=== PATIENT | male | born 1955 | race Caucasian/White ===

== ENCOUNTER 2023-02-18 08:12 | Outpatient (OUT) | payer MEDICARE, OTHER, SELFPAY ==
[2023-02-18 08:37] LABS: Basophils Percent Auto 0.6 % (0.2-2.0); Eosinophils Absolute Auto 0.3 10^3/uL (0.0-0.7); Eosinophils Percent Auto 4.2 % (0.9-7.0); Hematocrit 39.1 % (42.0-54.0); Immature Granulocytes Abs Auto 0.01 10^3/uL (0.00-0.03); Immature Granulocytes Pct Auto 0.2 % (0.0-0.5); Lymphocytes Absolute Auto 1.5 10^3/uL (1.2-3.8); Mean Corpuscular HGB Conc 33.2 g/dL (29.9-35.2); Mean Corpuscular Hemoglobin 30.4 pg (25.9-34.0); Mean Corpuscular Volume 91.6 fL (80.0-94.0); Mean Platelet Volume 10.8 fL (9.5-13.5); Monocytes Absolute Auto 0.7 10^3/uL (0.3-0.8); Neutrophils Absolute Auto 3.8 10^3/uL (1.4-6.5); Platelet Count 212 10^3/uL (150-450); Red Blood Count 4.27 10^6/uL (4.70-6.10); Red Cell Distribution Width 12.5 % (11.0-15.0); White Blood Count 6.3 10^3/uL (4.0-11.0)
[2023-02-18 09:05] LABS: Alanine Aminotransferase 47 U/L (16-63); Albumin Globulin Ratio 0.9; Albumin Level 3.5 g/dL (3.4-5.0); Alkaline Phosphatase 71 U/L (46-116); Anion Gap 13.5; Aspartate Amino Transferase 30 U/L (15-37); Bilirubin Total 0.6 mg/dL (0.2-1.0); Calcium 8.6 mg/dL (8.5-10.1); Carbon Dioxide 27.6 mmol/L (21.0-32.0); Chloride 108 mmol/L (98-107); Chol HDL Ratio 2.6; Cholesterol 99 mg/dL (<=200); Estimated GFR (African America >60 (>=60); Estimated GFR (Non-African Ame >60 (>=60); Globulin 3.7 g/dL; Glucose 103 mg/dL (74-106); HDL Cholesterol 38 mg/dL (40-60); Potassium 4.1 mmol/L (3.5-5.1); Sodium 145 mmol/L (136-145); Total Protein 7.2 g/dL (6.4-8.2); Triglycerides 102 mg/dL (<=150); VLDL CHOLESTEROL 20.4 mg/dL
== END 2023-02-18 08:13 | disposition home or self-care (01) ==
LOC: LAB 08:14
PROVIDERS: PCP Family Medicine; Visit Provider Nurse Practitioner Family
DX: I25.10 Atherosclerotic heart disease of native coronary artery without angina pectoris (principal)
CPT/HCPCS: 36415; 80053; 80061; 85025

== ENCOUNTER 2023-02-18 08:18 | Outpatient (OUT) | payer MEDICARE, OTHER, SELFPAY ==
--- NOTE | 2023-02-18 | PCN_ITS ---
CARDIAC STRESS TEST Requesting Physician:? Pj Vogt M.D. ? Procedure Date:? 02/18/2023 Performing Provider:? Wild Xiong M.D. INDICATION FOR STRESS TEST:? Chest pain. STRESS TEST TYPE:? Lexiscan myocardial perfusion scan. Resting heart rate:? 56 Max hear rate:? 90 Blood pressure, resting:? 132/60 Maximum blood pressure:? 132/60 Resting EKG:? Sinus rhythm with non-specific T-wave abnormality. CONCLUSION:? 1.? No definite EKG abnormalities meeting criteria for ischemia post Lexiscan injection. 2.? Please refer to separately interpreted and reported myocardial perfusion imaging. [facility] [facility]
--- NOTE | 2023-02-18 08:30 | NM_ITS ---
Patient: LIZBET JAIME Exam Date: 02/18/2023 : 1955 Gender:M Ordering : DR GARTH DOWNS M.D. Admission #: [id number] Family : ANGEL BUENO [facility] Order #: [id number] CLICK HERE TO VIEW EXAM RADIOLOGY REPORT PROCEDURE: NM CYRUS PERF SPECT REST STR COMPARISON: None. INDICATIONS: Chest pain TECHNIQUE: Exam Description: Stress/Rest two day protocol gated SPECT Rest Imagin.9 mCi Tc-99m Cardiolite IV on 02/18/2023 Stress Imaging 29.7 mCi Tc-99m Cardiolite IV on 02/18/2023 Exercise Protocol: 0.4 mg Lexiscan given IV Heart Rate (bpm): Rest: 56 Max: 90 PMHR: 59 Blood Pressure: Rest: 132/60 Max: 132/60 Symptoms: Rest and peak stress ECG findings were pending and the exercise portion of the study was pending per attending physician Dr. CONKLIN . For more details please see separate cardiac stress test report. FINDINGS: QUALITY OF STUDY: Good. PERFUSION DEFECT: None. LOCATION: N/A SIZE: N/A. SEVERITY: N/A. TYPE: N/A. WALL MOTION: Normal. LV SIZE: Normal. 87 mL. TID / TCD: None; 0.9 LVEF: Normal. Calculated EF 74%. SUMMARY: Myocardial perfusion imaging study is NORMAL. CONCLUSION: 1. Normal myocardial perfusion scan with no reversible ischemia 2. Exercise test results are pending Dictated by: Hernan Wheeler MD on 02/19/2023 at 12:59 Approved by: Hernan Wheeler MD on 02/19/2023 at 13:01
[2023-02-18] MEDS: REGADENOSON 0.4 MG/5 ML SYRINGE IV (10:21)
== END 2023-02-18 08:19 | disposition home or self-care (01) ==
LOC: NM 08:18
PROVIDERS: PCP Family Medicine; Visit Provider Internal Medicine Interventional Cardiology
DX: R07.9 Chest pain, unspecified (principal)
CPT/HCPCS: 78452; 93017; A9500; J2785

== ENCOUNTER 2023-06-16 11:50 | Outpatient (OUT) | payer MEDICARE, OTHER, SELFPAY ==
--- NOTE | 2023-06-16 12:03 | XR_ITS ---
The [address] [address] Patient Name: LIZBET JAIME MRN: [id number] date: 1955 Sex: M Assigned Patient Location: [facility] Current Patient Location: [facility] Accession/Order Number: [id number] Exam Date: 06/16/2023 12:07 Report Date: 06/16/2023 12:27 At the request of: NICKY MOTA Procedure: XR chest 2V EXAM: XR chest 2V HISTORY: Bronchitis J40 COMPARISON: None. TECHNIQUE: PA and lateral views of the chest. FINDINGS: The cardiomediastinal silhouette is normal. No focal consolidation is identified. There is no pneumothorax. No pleural effusion is noted. The osseous structures are intact. XR/XR chest 2V IMPRESSION: No acute cardiopulmonary process. Electronically authenticated by: CRISTY BETANCOURT Date: 06/16/2023 12:27
== END 2023-06-16 11:51 | disposition home or self-care (01) ==
LOC: RAD 11:53
PROVIDERS: PCP Family Medicine; Visit Provider Family Medicine
DX: J40 Bronchitis, not specified as acute or chronic (principal)
CPT/HCPCS: 71046

== ENCOUNTER 2023-07-15 10:00 | Outpatient (OUT) | payer MEDICARE, OTHER, SELFPAY ==
[2023-07-15 13:15] LABS: Hemoglobin 13.3 g/dL (14.0-18.0)
[2023-07-15] MEDS: ALBUTEROL SULFATE 2.5 MG/3 ML VIAL NEB IH (14:38)
--- NOTE | 2023-07-15 14:38 | RT_ITS ---
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 Findings were considered accurate and reproducible. Both pre- and post-bronchodilator values utilized for spirometry. Due to software limitations, no prior studies (if performed previously) are currently available for comparison. Spirometry (based on pre-bronchodilator values): -FEV1/FVC: Reduced @ 63% -FEV1: Moderately reduced @ 74% -FVC: Normal @ 86% -There is no significant bronchodilator response. Lung volumes by plethysmography (based on pre-bronchodilator values): -RV: Normal @ 86% -TLC: Normal @ 87% Diffusion capacity: -DLCO: Mild reduction @ 75% when corrected for Hb 13.3g/dL Flow-volume loop: -Moderate obstructive pattern Flow-pressure loop: ???Emphysematous pattern Impressions: -Spirometry suggests moderate obstruction. There is no bronchodilator response. Lung volumes are normal. There is a mildly reduced diffusion capacity. Overall study is compatible with COPD/emphysema. Clinical correlation required. Electronically Signed On 07-16-2023 12:24:02 EST by Ion Peña
== END 2023-07-15 10:01 | disposition home or self-care (01) ==
LOC: CARD 07-28 10:40
PROVIDERS: PCP Family Medicine; Visit Provider Family Medicine
DX: J44.9 Chronic obstructive pulmonary disease, unspecified (principal)
CPT/HCPCS: 36415; 85018; 94060; 94726; 94729

== ENCOUNTER 2024-09-29 14:27 | Outpatient (OUT) | payer MEDICARE, OTHER, SELFPAY ==
--- OUTSIDE RECORDS SUMMARY | 2024-09-29 14:51 | XMS_ITS | CCD ---
Author Organization [facility] Care Team Providers Care Script Developer Name Role Phone PHYSICIAN, DEFAULT Unavailable Unavailable PHYSICIAN, DEFAULT Unavailable Unavailable SELF, REFERRED Unavailable Unavailable Xiang Wynn Unavailable SVETLANA, DR NICKY Hunter Consulting Unavailable MOTA, DR NIKCY Hunter Attending Unavailable MOTA, DR NICKY Hunter Admitting Unavailable MOTA, DR NICKY Hunter Primary Care Unavailable ZIEBER, DR DAPHNE Wheeler Consulting Unavailable MOTA, DR NICKY Hunter Primary Care Unavailable XIMENAANGEL Admitting Unavailable XIMENAANGEL WAGNER Attending Unavailable ELTAHAWY, DR LIANG Consulting Unavailable MOTA, DR NICKY Hunter Primary Care Unavailable ELTAHAWY, DR LIANG Attending Unavailable ELTAHAWY, DR LIANG Admitting Unavailable MOTA, DR NICKY Hunter Primary Care Unavailable MOTA, DR NICKY Hunter Consulting Unavailable MOTA, DR NICKY Hunter Attending Unavailable MOTA, DR NICKY Hunter Admitting Unavailable ZIEBER, DR DAPHNE Wheeler Consulting Unavailable MOTA, DR NICKY Hunter Consulting Unavailable MOTA, DR NICKY Hunter Attending Unavailable MOTA, DR NICKY Hunter Admitting Unavailable MOTA, DR NICKY Hunter Primary Care Unavailable ISRAEL BOOTHE Consulting Unavailable ELTAHAWY, PJ Attending Unavailable MOTA, NICKY Hunter Referring Unavailable MOTANICKY Primary Care Unavailable Allergies Allergy Classification Reported Allergen(s) Allergy Type Date of Onset Reaction(s) Facility (1 source) Iodine Drug Allergy Unknown [place] Translation Other (1 source) Iodine Drug Allergy 6 [facility] Repository (2 sources) IODINATED CONTRAST MEDIA; Translations: [IODINATED CONTRAST MEDIA] Propensity to adverse reactions to drug (disorder) 4 [facility] Repository (1 source) Benzoate; Translations: [BENZOIC ACID] Drug Allergy 9 [facility] Repository (1 source) IODINE AND IODIDE CONTAINING PRODUCTS; Translations: [IODINE AND IODIDE CONTAINING PRODUCTS] Propensity to adverse reactions to food (disorder) 4 [facility] Repository Medications Current Medications Medication Drug Class(es) Dates Sig (Normalized) Sig (Original) aspirin 81 mg delayed release oral tablet (1 source) Platelet Aggregation Inhibitor, Nonsteroidal Anti-inflammatory Drug take 1 tablet by mouth every twenty-four hours Aspirin 81 MG 1 tablet Orally Once a day Active atorvastatin 40 mg oral tablet (1 source) HMG-CoA Reductase Inhibitor take 1 tablet by mouth every twenty-four hours Atorvastatin Calcium 40 MG 1 tablet Orally Once a day Active bumetanide 1 mg oral tablet (1 source) Loop Diuretic Bumetanide 1 MG as directed Orally Active clopidogrel 75 mg oral tablet (1 source) P2Y12 Platelet Inhibitor take 1 tablet by mouth every twenty-four hours Plavix 75 MG 1 tablet Orally Once a day Active potassium chloride 20 meq extended release oral tablet (1 source) take 1 tablet by mouth every twenty-four hours Potassium Chloride ER 20 MEQ 1 tablet with food Orally Once a day Active pramipexole dihydrochloride 0.25 mg oral tablet (1 source) Nonergot Dopamine Agonist take 1 tablet by mouth every twenty-four hours Pramipexole Dihydrochloride 0.25 MG 1 tablet Orally Once a day Active Vitamin B12 1000 MCG (1 source) take 1 tablet by mouth once daily Vitamin B12 1000 MCG 1 tablet Orally Once a day Active Problems Active Problems Problem Classification Problem Date Documented Date Episodic/Chronic Coronary atherosclerosis and other heart disease (2 sources) Atherosclerotic heart disease of [place] coronary artery without angina pectoris; Translations: [Atherosclerotic heart disease of [place] coronary artery without angina pectoris] Onset: 12-29-2023 Chronic Disorders of lipid metabolism (1 source) Hyperlipidemia, unspecified; Translations: [Hyperlipidemia, unspecified] Onset: 02-01-2024 Chronic Essential hypertension (1 source) Essential (primary) hypertension; Translations: [Essential (primary) hypertension] Onset: 02-01-2024 Chronic Other acquired deformities (4 sources) Spondylolysis, lumbar region; Translations: [SPONDYLOLYSIS LUMBAR REGION] Onset: 02-27-2022 Episodic Other screening for suspected conditions (not mental disorders or infectious disease) (1 source) Encounter for screening for malignant neoplasm of prostate; Translations: [Encounter for screening for malignant neoplasm of prostate] Onset: 02-01-2024 Episodic Residual codes; unclassified (4 sources) Other amnesia; Translations: [OTHER AMNESIA] Onset: 03-03-2022 Episodic Spondylosis; intervertebral disc disorders; other back problems (2 sources) Degeneration of cervical intervertebral disc; Translations: [Other cervical disc degeneration, unspecified cervical region] Onset: 03-06-2022 Chronic Past or Other Problems Problem Classification Problem Date Documented Da te Episodic/Chronic Other bone disease and musculoskeletal deformities (1 source) Other specified disorders of bone density and structure, other site; Translations: [OTH D/O BONE DEN STRUCT OTH SITE] Onset: 09-26-2021 Episodic Other fractures (4 sources) Collapsed vertebra, not elsewhere classified, thoracic region, initial encounter for fracture; Translations: [COLLAPSED VERT NEC THOR INIT ENC] Onset: 09-24-2021 Episodic Other fractures (1 source) Multiple fractures of ribs, right side, initial encounter for closed fracture; Translations: [MX FX RIBS RT SIDE INITIAL CLOS FX] Onset: 09-26-2021 Episodic Other lower respiratory disease (4 sources) Dyspnea, unspecified; Translations: [DYSPNEA UNSPECIFIED] Onset: 10-08-2021 Episodic Spondylosis; intervertebral disc disorders; other back problems (1 source) Cervical disc disorder at C5-C6 level with radiculopathy Onset: 07-11-2021 Resolved: 07-11-2021 Episodic Results Test Name Value Interpretation Reference Range Facility IRON, TIBC AND FERRITINon % SATURATION 30 % Normal (20 - 55) [facility] Comment on above: Order Comment: FACIL ITY: [facility] [id number] Performed By: #### T IBC+, B12+ #### [facility] [address] [facility], [id number] Ferritin [Mass/Vol] 119.0 ng/mL Normal (18.0 - 464.0) [facility] Comment on above: Order Comment: FACIL ITY: [facility] [id number] Performed By: #### T IBC+, B12+ #### [facility] [address] [place], [address] Iron [Mass/Vol] 92 ug/dL Normal (49 - 181) [facility] [facility] Comment on above: Order Comment: FACIL ITY: [place] [facility] [id number] Performed By: #### T IBC+, B12+ #### [place] [facility] [address] [place], [address] TIBC 308 UG/DL Normal (250 - 450) [place] [facility] Comment on above: Order Comment: FACIL ITY: [place] [facility] [id number] Performed By: #### T IBC+, B12+ #### [facility] [address] [place], [address] VIT B12 AND FOLATEon 025 Cobalamin (Vitamin B12) [Mass/Vol] 648 pg/mL Normal (239 - 931) [facility] above: Performed By: #### T IBC+, B12+ #### [facility] [address] [place], [address] FOLIC ACID 9.2 NG/ML Normal (2.8 - 20.0) [place] [facility] Comment on above: Performed By: #### T IBC+, B12+ #### [facility] [address] [place], [address] CBC AND AUTO DIFFon 02-01-20 24 ABSOLUTE BASOPHIL 0.0 X10E9/L Normal 0.0-0.2 [facility] Comment on above: Performed By: #### C MARCELLA, 29435-9, 2857-1, CBCA #### [facility] ([id number]) [address] [place] [address] ABSOLUTE NEUTROPHIL 4.2 X10E9/L Normal 1.5-6.6 [facility] Comment on above: Performed By: #### C MARCELLA, 70963-1, 2857-1, CBCA #### [facility] ([id number]) [address], [address] [place] [address] Basophils/100 WBC (Bld) 0.3 % Normal [facility] Comment on above: Performed By: #### C MARCELLA, 58260-5, 2857-1, CBCA #### [facility] ([id number]) [address], [facility] [address] [place] [address] Eosinophils (Bld) [#/Vol] 0.2 10*3/uL Normal 0.0-0.4 [facility] Comment on above: Performed By: #### C MARCELLA, 67133-4, 2857-1, CBCA #### [facility] ([id number]) [address] [address] [place] [address] Eosinophils/100 WBC (Bld) 3.7 % Normal [facility] Comment on above: Performed By: #### Miles NARANJO, 09183-6, 2856-, CBCA #### [facility] ([id number]) [address] [address] [place] [address] Erythrocyte distribution width (RBC) [Ratio] 13.0 % Normal 11.5-15.0 [facility] Comment on above: Performed By: #### C MARCELLA, 48020-8, 2857-1, CBCA #### [facility] ([id number]) [address] [address] [place] [address] Hematocrit (Bld) [Volume fraction] 40.8 % Normal 39-49 [facility] Comment on above: Performed By: #### C MARCELLA, 92566-8, 2857-1, CBCA #### [facility] ([id number]) [address] [address] [place] [address] Hemoglobin (Bld) [Mass/Vol] 14.1 g/dL Normal 13.0-17.0 [facility] Comment on above: Performed By: #### C MARCELLA, 25202-3, 2857-1, CBCA #### [facility] ([id number]) [address] [place] [address] Lymphocytes (Bld) [#/Vol] 1.5 10*3/uL Normal 1.0-3.5 [facility] Comment on above: Performed By: #### Miles NARANJO, 11974-2, 2856-, CBCA #### [facility] ([id number]) [address], [facility] [address] [place] [address] Lymphocytes/100 WBC (Bld) 23.6 % Normal [facility] Comment on above: Performed By: #### Miles NARANJO, 67487-7, 2856-, CBCA #### [facility] ([id number]) [address], [facility] [address] [place] [address] MCH (RBC) [Entitic mass] 32.2 pg Normal 27-34 [facility] Comment on above: Performed By: #### Miles NARANJO, 44357-6, 2856-08, CBCA #### [facility] ([id number]) [address], [facility] [address] [place] [address] MCHC (RBC) [Mass/Vol] 34.6 g/dL Normal 32-36 [facility] Comment on above: Performed By: #### Miles NARANJO, 72110-2, 2856-, CBCA #### [facility] ([id number]) [address], [facility] [address] [place] [address] MCV (RBC) [Entitic vol] 93 fL Normal 80-100 [facility] Comment on above: Performed By: #### Miles NARANJO, 69604-9, 285-, CBCA #### [facility] ([id number]) [address], [address] [place] [address] Monocytes (Bld) [#/Vol] 0.6 10*3/uL Normal 0-0.9 [facility] Comment on above: Performed By: #### C MARCELLA, 15236-3, 2857-1, CBCA #### [facility] ([id number]) [address], [address] [place] [address] Monocytes/100 WBC (Bld) 8.7 % Normal [facility] Comment on above: Performed By: #### C MARCELLA, 53479-4, 2857-1, CBCA #### [facility] ([id number]) [address], [address] [place] [address] Neutrophils/100 WBC (Bld) 63.7 % Normal [facility] Comment on above: Performed By: #### C MARCELLA, 68392-6, 2857-1, CBCA #### [facility] ([id number]) [address], [address] [place] [address] Platelet mean volume (Bld) [Entitic vol] 9.5 fL Normal 7-12 [facility] Comment on above: Performed By: #### C MARCELLA, 86240-2, 2857-1, CBCA #### [facility] ([id number]) [address], [facility] [address] [place] [address] Platelets (Bld) [#/Vol] 178 10*3/uL Normal 150-450 [facility] Comment on above: Performed By: #### C MARCELLA, 70258-1, 2857-1, CBCA #### [facility] ([id number]) [address], [address] [place] [address] RBC COUNT 4.39 X10E12/L Normal 4.10-5.70 [facility] Comment on above: Performed By: #### C MARCELLA, 91550-7, 2857-1, CBCA #### [facility] ([id number]) [address] [address] [place] [address] WBC (Bld) [#/Vol] 6.5 10*3/uL Normal 4.0-11.0 [facility] Comment on above: Performed By: #### C MARCELLA, 04678-7, 2857-1, CBCA #### [facility] ([id number]) [address] [place] [address] COMPREHENSIVE METABOLIC PANE Gael 02-01-2024 Albumin [Mass/Vol] 4.0 g/dL Normal 3.2-5.3 [facility] Comment on above: Performed By: #### C MARCELLA, 57765-5, 2857-1, CBCA #### [facility] ([id number]) [address], [address] [place] [address] ALP [Catalytic activity/Vol] 70 U/L Normal 39-130 [facility] Comment on above: Performed By: #### C MARCELLA, 51278-9, 2857-1, CBCA #### [facility] ([id number]) [address], [address] [place] [address] ALT [Catalytic activity/Vol] 34 U/L Normal 0-40 [facility] Comment on above: Performed By: #### C MARCELLA, 71988-5, 2857-1, CBCA #### [facility] ([id number]) [address], [address] [place] [address] Anion gap [Moles/Vol] 7 mmol/L Normal 5-15 [facility] Comment on above: Performed By: #### C MARCELLA, 22107-2, 2857-1, CBCA #### [facility] ([id number]) [address], [address] [place] [address] AST [Catalytic activity/Vol] 25 U/L Normal 0-41 [facility] Comment on above: Performed By: #### C MARCELLA, 89855-2, 2857-1, CBCA #### [facility] ([id number]) [address], [address] [place] [address] Bilirubin [Mass/Vol] 0.8 mg/dL Normal 0.3-1.2 [facility] Comment on above: Performed By: #### C MARCELLA, 09878-4, 2857-1, CBCA #### [facility] ([id number]) [address], [address] [place] [address] Calcium [Mass/Vol] 9.1 mg/dL Normal 8.5-10.5 [facility] Comment on above: Performed By: #### C MARCELLA, 55025-4, 2857-1, CBCA #### [facility] ([id number]) [address], [facility] [address] [place] [address] Chloride [Moles/Vol] 108 mmol/L Normal 98-109 [facility] Comment on above: Performed By: #### Miles NARANJO, 43098-4, 2857-1, CBCA #### [facility] ([id number]) [address], [address] [place] [address] CO2 [Moles/Vol] 27 mmol/L Normal 22-32 [facility] Comment on above: Performed By: #### Miles NARANJO, 75839-1, 2857-1, CBCA #### [facility] ([id number]) [address], [facility] [address] [place] [address] Creatinine [Mass/Vol] 0.87 mg/dL Normal 0.60-1.30 [facility] Comment on above: Result Comment: METH OD TRACEABLE TO IDMS STANDARD Performed By: #### C MARCELLA, 99935-3, 2857-1, CBCA #### [facility] ([id number]) [address], [facility] [address] [place] [address] eGFR (CKD-EPI) NON-RACE DEPENDENT >90 Normal >59 [facility] Comment on above: Result Comment: Reported eGFR is based on the CKD-EPI 2020 equation that does not use a race coefficient. Performed By: #### Miles NARANJO, 90358-4, 2857-1, CBCA #### [facility] ([id number]) [address], [address] [place] [address] Glucose [Mass/Vol] 96 mg/dL Normal 65-99 [facility] Comment on above: Performed By: #### Miles NARANJO, 30646-7, 2857-1, CBCA #### [facility] ([id number]) [address], [address] [place] [address] Potassium [Moles/Vol] 3.9 mmol/L Normal 3.5-5.0 [facility] Comment on above: Performed By: #### Miles NARANJO, 96688-3, 2857-1, CBCA #### [facility] ([id number]) [address], [address] [place] [address] Protein [Mass/Vol] 6.8 g/dL Normal 6.0-8.0 [facility] Comment on above: Performed By: #### Miles NARANJO, 43712-9, 2857-1, CBCA #### [facility] ([id number]) [address], [address] [place] [address] Sodium [Moles/Vol] 142 mmol/L Normal 134-146 [facility] Comment on above: Performed By: #### Miles NARANJO, 67221-2, 2857-1, CBCA #### [facility] ([id number]) [address], [address] [place] [address] Urea nitrogen [Mass/Vol] 17 mg/dL Normal 5-27 [facility] Comment on above: Performed By: #### Miles NARANJO, 59359-2, 2857-1, CBCA #### [facility] ([id number]) [address], [address] [place] [address] Lipid 1996 panelon 4 Cholesterol [Mass/Vol] 118 mg/dL Low 150-200 [facility] Comment on above: Performed By: #### Miles NARANJO, 25764-4, 285-1, CBCA #### [facility] ([id number]) [address], [address] [place] [address] Cholesterol in HDL [Mass/Vol] 42 mg/dL Normal >39 [facility] Comment on above: Result Comment: HDL <40 mg/dL - High Risk HDL > or = 40mg/dL- Desirable HDL >60 mg/dL - Negative Risk Performed By: #### Miles NARANJO, 81527-6, 285-1, CBCA #### [facility] ([id number]) [address], [address] [place] [address] Cholesterol in LDL [Mass/Vol] 52 mg/dL Normal <130 [facility] Comment on above: Result Comment: LDL <100 mg/dL - Desirable LDL >160 mg/dL - High Risk Performed By: #### Miles NARANJO, 67237-7, 285-1, CBCA #### [facility] ([id number]) [address] [place] [address] Cholesterol in VLDL [Mass/Vol] 24 mg/dL Normal 0-30 [facility] Comment on above: Performed By: #### Miles NARANJO, 52606-4, 285-1, CBCA #### [facility] ([id number]) [address], [address] [place] [address] CHOLESTEROL:HDL 2.8 Normal 1.0-5.0 [facility] Comment on above: Performed By: #### Miles NARANJO, 84945-8, 2857-1, CBCA #### [facility] ([id number]) [address] [address] Triglyceride [Mass/Vol] 120 mg/dL Normal 27-150 [facility] Comment on above: Performed By: #### C MARCELLA, 53303-2, 5027-1, CBCA #### [facility] ([id number]) [address] [address] MICROALBUMIN - ALBUMIN:CREAT ININE URINE RATIOon 02-01-2024 ALB/CREAT RATIO NOT CALCULATED Normal 0.0-30.0 [facility] Comment on above: Result Comment: Result for Albumin/Creatinine Ratio cannot be reliably calculated because urine albumin and or urine creatinine is below the detection limit of the assay. Performed By: #### M ALBU #### [facility] ([id number]) [address] [address] Albumin DL <= 20 mg/L (U) [Mass/Vol] mg/dL Normal 0.0-1.9 [facility] Comment on above: Performed By: #### M ALBU #### [facility] ([id number]) [address] [address] URINE CREAT 53.08 mg/dL Normal [facility] Comment on above: Performed By: #### M ALBU #### [facility] ([id number]) [facility] [address] [address] Prostate specific Ag [Mass/V ol]on 02-01-2024 PSA SCREEN 0.21 ng/mL Normal 0.00-4.00 [facility] Comment on above: Result Comment: The method used for this test is Shavonne [place] DXI chemiluminescent immunoassay. Values obtained by different assay methods cannot be used interchangeably. Performed By: #### C MARCELLA, 05640-3, 3197-1, CBCA #### [facility] ([id number]) [address] [address] Office Visiton 12-29-2023 Follow-up visit [id number] Cristino Jaime 1955 M Date Provider Department Center 12/29/2023 271-PJ VOGT [facility] Family History Problem Relation Age of Onset Hypertension Mother Diabetes Mother Coronary artery disease Father Atrial fibrillation Sister Cancer Sister Diabetes Sister Family Status - Relation Status Age at Mother Father Sister Level of Service:13[address] [place] OFFICE/OUTPATIENT ESTABLISHED LOW MDM 20 MIN Normal [facility] MRI BRAIN WO W CONon 022 MRI BRAIN WO W CON EXAM: MRI BRAIN WO W CON HISTORY: Amnesia COMPARISON: None. TECHNIQUE: Multiplanar, multisequence MR imaging of the head was performed prior to and following the administration of 20 mL Dotarem contrast intravenously. FINDINGS: No restricted diffusion. No acute hemorrhage, mass effect, midline shift, or extra-axial fluid collection. No ventriculomegaly. Expected flow voids are seen within the intracranial internal carotid, vertebral, and basilar arteries. The cerebellopontine angles and internal auditory canals are unremarkable. The pituitary gland and midline structures are unremarkable. Bone marrow signal is within normal limits. There is mild cerebral atrophy with concordant prominence of the ventricles. Mild patchy areas of increased FLAIR signal are seen within the subcortical and periventricular white matter. No abnormal enhancement. IMPRESSION: 1. Mild atrophy and small vessel ischemic changes of the supratentorial white matter. 2. No acute infarct, mass effect, or abnormal enhancement. Electronically authenticated by: ISRAEL BOOTHE Date: 2022-03-03 15:36 Normal [facility] XR LSPINE MIN 4 VIEWSon 02-01 XR LSPINE MIN 4 VIEWS EXAMINATION: XR LSPINE MIN 4 VIEWS HISTORY: Acquired spondylolysis of lumbar spine COMPARISON: No relevant comparison available. FINDINGS: BONES: Mild right convex curvature of lumbar spine. No significant spondylosis, fracture, or visible bony lesion or vertebral bodies. Mild degenerative facet arthropathy L4-L5, L5-S1.. DISC SPACES: Mild narrowing L4-L5, moderate narrowing L5-S1. PARASPINOUS: Negative. No paraspinous abnormality is seen. OTHER: Hyperdense oval structure within left upper quadrant likely represents a medication or vitamin/mineral tablet. IMPRESSION: 1. No appreciable acute abnormality. 2. Mild-moderate degenerative disc disease of lower lumbar spine. Electronically authenticated by: DAPHNE GILMORE Date: 2022-02-28 08:08 Normal [facility] ECHOCARDIO M/2D COMPLETEon 0 10-08-2021 ECHOCARDIO M/2D COMPLETE Patient: CRISTINO JAIME Exam Date: 10/08/2021 : 1955 Gender:M Ordering : DR PJ VOGT M.D. Admission #: [id number] Family : Order #: [id number] CLICK HERE TO VIEW EXAM ECHOCARDIOGRAM REPORT PROCEDURE: CARDIO PULMONARY ECHOCARDIO M/2D COMP INDICATIONS: Dyspnsea COMPARISON: None. DESCRIPTION: COMPLETE ECHOCARDIOGRAM Real-time transthoracic echocardiography with 2D, M-mode, spectral and color flow Doppler performed. QUALITY: Technical quality was good. LEFT VENTRICLE: Normal chamber size. Normal left ventricular wall thickness. Global left ventricular systolic function is normal. Estimated left ventricular ejection fraction is 60-65%. LV EF: DIASTOLIC: Normal diastolic function. ATRIAL SEPTUM: LEFT ATRIUM: Normal chamber size. RIGHT ATRIUM: Normal chamber size. RIGHT VENTRICLE: Normal chamber size. Normal right ventricular systolic function. TRICUSPID VALVE: Normal mobility and thickness. No stenosis with mild regurgitation. No evidence of pulmonary hypertension. RVSP 30 mmHg MITRAL VALVE: Normal mobility and thickness. No mitral valve prolapse. No evidence of mitral valve stenosis. There is no mitral annular calcification. Trivial mitral regurgitation. AORTIC VALVE: Normal trileaflet appearance. Mildly calcified non-coronary cusp of the aortic valve. Normal leaflet mobility. No evidence of aortic valve stenosis. No aortic regurgitation. AORTIC ROOT: Normal diameter and appearance. PULMONIC VALVE: Normal thickness and mobility. No stenosis. Trivial regurgitation. PERICARDIUM: No evidence of pericardial effusion. IVC: Collapses with inspirations. Normal size. PLEURA: CONCLUSION: 1. Normal ventricular function. LVEF is 60-65%. 2. No valvular dysfunction. 3. Normal right sided pressures. 4. No pericardial effusion. Adult Echocardiography Procedure Report Left Ventricle LVEDD (3.7 - 5.6 cm): 4.52 cm LVESD (2.2 - 4.0 cm): 3.11 cm LVIVS thickness (0.6 - 1.2 cm): 1.04 cm LVPW thickness (0.5 - 1.0 cm): 9.70 mm e': 9.87 cm/s E - e': 8.70 LVOT Area (cm2): 3.80 cm2 LVOT Diameter 2.20 cm Left Ventricular Ejection Fraction: 60-65% Left Atrium LA Volume Index (2D A2C): 17.50 ml/m2 Left Atrium Systolic Dimension: 4.20 cm Left Atrium Systolic Area(A2C): 16.60 cm2 Left Atrium Systolic Area(A4C): 20.00 cm2 Left Atrium Systolic Volume(A2C): 10504 mm3 Left Atrium Systolic Volume(A4C): 02503 mm3 Mitral Valve MV E to A Ratio: 1 Deceleration Cole: 4410 mm/s2 Mitral Valve A-Wave Peak Velocity: 89.30 cm/s Mitral Valve E-Wave Peak Velocity: 85.40 cm/s Right Ventricle RV Internal Diastolic Dimension: 3.92 cm Aorta AO Root Diam: 2.80 cm Aortic Valve AoV Area (Peak Emanuel): 2.68 cm2 Aortic Valve Cusp Separation: 1.60 cm Peak Velocity(Antegrade Flow): 152.00 cm/s Peak Gradient(Antegrade Flow): 9 mm[Hg] Tricuspid Valve Peak Velocity (Regurgitant Flow): 246.00 cm/s, 248.00 cm/s Pulmonic Valve Peak Velocity: 114.00 cm/s Peak Gradient: 5 mm[Hg] Right Atrium Dictated by: Gurjit Ennis M.D. on 10/08/2021 at 16:01 Approved by: Gurjit Ennis M.D. on 10/08/2021 at 16:06 Normal [facility] XR DEXA BONE DENSITYon 09-24 XR DEXA BONE DENSITY EXAMINATION: XR DEXA BONE DENSITY, 09/24/2021 2:43 PM EST HISTORY: Collapse of vertebra COMPARISON: None. TECHNIQUE: Dual-energy X-ray absorptiometry (DEXA) bone density study performed for the axial skeleton. FINDINGS: SPINE ANALYSIS: Average bone mineral density is 1.257 g/cm2. T-score (standard deviation relative to young adult mean): 0.6 . HIP ANALYSIS: Lowest bone mineral density is within the left femoral neck, 0.851 g/cm2. T-score (standard deviation relative to young adult mean): -1.3 . IMPRESSION: [employer] Classification: Osteopenia - Moderate Fracture Risk Electronically authenticated by: DAPHNE GILMORE Date: 2021-09-24 15:27 [facility] XR TSPINE 3 VIEWSon 09-24-19 22 XR TSPINE 3 VIEWS EXAMINATION: XR TSPI NE 3 VIEWS HISTORY: Collapse of vertebra COMPARISON: XR chest 07/03/2010 FINDINGS: BONES: Moderate compression fracture of approximately T8 vertebral body. Mild left convex curvature of thoracic spine and multilevel mild degenerative disc disease. Posterior lateral right fifth and sixth rib fractures suspected to be old. DISC SPACES: Multilevel mild degenerative disc disease. PARASPINOUS: Negative. No paraspinous abnormality is seen. OTHER: Prior sternotomy. IMPRESSION: 1. Age indeterminant mild compression fracture of T8 vertebral body, suspected to be chronic. No recent comparative studies. 2. Posterior lateral right fifth and sixth rib fractures suspected to be chronic. Electronically authenticated by: DAPHNE GILMORE Date: 2021-09-24 15:30 Normal [facility] Vital Signs Date Time Vital Sign Value Performing Clinician Facility 07-11-2021 11:20-0500 Body height 180.34 cm Xiang Wynn Other [facility] Other 07-11-2021 11:20-0500 Body mass index (BMI) [Ratio] 33.05 kg/m2 Xiang Wynn Other [facility] Other 07-11-2021 11:20-0500 Body weight 107.5 kg Xiang Kingsley Other [facility] Other 07-11-2021 11:20-0500 Diastolic blood pressure 86 mm[Hg] Xiang Wynn Other [facility] Other 07-11-2021 11:20-0500 Systolic blood pressure 130 mm[Hg] Xiang Wynn Other [facility] Other Encounters Encounter Date Encounter Type Care Provider Facility Start: 02-01-2024 End: 02-01-2024 ambulatory [facility] Start: 12-29-2023 End: 12-29-2023 ambulatory [facility] Start: 03-12-[address] NICKY MOTA Fac ility:[facility] Start: 03-03-2022 End: 03-04-[address] NICKY MOTA Facility:[facility] Start: 02-27-2022 End: 02-28-[address] NICKY MOTA Facility:[facility] Start: 10-08-2021 End: 10-09-[address] PJ VOGT Facility:[facility] Start: 09-24-2021 End: 09-25-[address] NICKY MOTA Facility:[facility] Start: 07-11-2021 End: 07-11-2021 ambulatory Xiang Wynn Other [facility] Other Start: 07-11-2021 Office outpatient visit 15 minutes Xiang Wynn [facility] Start: 04-01-2016 End: 04-02-2016 Ambulatory DEFAULT PHYSICIAN Facility:[facility] Payers Date Payer Category Payer Medicare [id number] 2.1 [id number] 1960 Self-pay 1960 Unknown [id number]. [id number] 1955 Unknown [id number] 2.16.84 [id number] 1954 Unknown [id number] 2.16.84 [id number] 1954 Unknown [id number] 2.16.84 [id number] 1954 Unknown [id number] 2.16.84 [id number] 1954 Unknown [id number] 2.16.84 [id number] 1954 Unknown [id number] 2.16.8 [id number] Unknown Social History Date Type Detail Facility Sex Assigned At [facility] Other Progress note 12-29-2023 Note Date & Type Note Facility 12-29-2023 Note [facility] Note Chief Complaint: Patient here for 1 year follow up CAD, dyslipidemia, and chest pain. Had stress test last January 2023, after last apt. Says he's been more SOB the past few days since he hasn't used his inhaler. Still gets intermittent chest pain. HPI: Surinder Jaime is a 68 y.o. male Here in routine follow-up He has been doing well and has no significant new symptoms Cardiology ROS: Review of Systems Cardiovascular: Positive for chest pain and dyspnea on exertion. Respiratory: Positive for cough, shortness of breath, sleep disturbances due to breathing and snoring. Musculoskeletal: Positive for back pain, joint pain, neck pain and stiffness. Neurological: Positive for numbness. All other systems reviewed and are negative. Past Medical History He has a past medical history of Coronary artery disease and Hyperlipidemia. Surgical History He has a past surgical history that includes Coronary artery bypass graft; Cardiac catheterization; and Tonsillectomy. Social History He reports that he has quit smoking. His smoking use included cigarettes. He has never used smokeless tobacco. No history on file for alcohol use and drug use. Family History Family History Problem Relation Name Age of Onset Hypertension Mother Diabetes Mother Coronary artery disease Father Atrial fibrillation Sister Cancer Sister Diabetes Sister Allergies Iodinated contrast media Medications Current Outpatient Medications: acetaminophen (Tylenol) 325 mg tablet, Take 650 mg by mouth every 6 (six) hours if needed for mild pain (1-3 pain score)., Disp: , Rfl: alendronate (Fosamax) 70 mg tablet, Take 70 mg by mouth., Disp: , Rfl: aspirin 81 mg chewable tablet, Chew 81 mg in the morning., Disp: , Rfl: atorvastatin (Lipitor) 40 mg tablet, Take 40 mg by mouth., Disp: , Rfl: bumetanide (Bumex) 1 mg tablet, Take 1 mg by mouth., Disp: , Rfl: carvedilol (Coreg) 6.25 mg tablet, Take 6.25 mg by mouth., Disp: , Rfl: cyanocobalamin (Vitamin B-12) 1,000 mcg tablet, Take 1,000 mcg by mouth in the morning., Disp: , Rfl: potassium chloride CR (K-Tab) 20 mEq ER tablet, Take 20 mEq by mouth., Disp: , Rfl: pramipexole (Mirapex) 0.25 mg tablet, Take 0.25 mg by mouth., Disp: , Rfl: Last Recorded Vitals BP 132/70 (BP Location: Left arm, Patient Position: Sitting) Pulse 70 Ht 1.803 m (5' 11 ) Wt 107 kg (236 lb) SpO2 96% BMI 32.92 kg/m??? Physical Examination: GENERAL: alert and oriented x3, well developed, in no acute distress. HEAD: atraumatic, normocephalic. EYES: MIKEL, EOMI. NECK: trachea midline, no JVD present, no carotid bruits present. CARDIAC: S1, S2 present. RRR. No murmur, rubs, or gallops. RESPIRATORY: CTAB, no increased effort of breathing, no rales, rhonchi, or wheezing. ABDOMEN: soft, nontender, nondistended. EXTREMITIES: no lower extremity edema, peripheral pulses are 2+ bilaterally. No rash/skin discoloration present. NEURO: strength/sensation equal and symmetric in bilateral upper and lower extremities. PSYCH: appropriate mood, affect, and judgement. Investigations: Echo 10/08/2021 1. Normal ventricular function, LVEF 60 to 65% 2. No valvular dysfunction 3. Normal right-sided pressures 4. No pericardial effusion Exercise stress test 01/2023: Myocardial perfusion study is normal Assessment: Coronary artery disease, history of coronary artery bypass graft [facility] [place] [address] [facility] Dyslipidemia Dyspnea on exertion Chest pain Fatigue Hypertension Plan: Continue medical therapy for coronary artery disease including aspirin, moderate intensity statin therapy, a beta-samuel Treat noncardiac comorbidities as clinically appropriate Return to clinic in 1 year or sooner should problems arise Pj Vogt MD, MPH, FACC, [facility], [facility] Interventional Cardiology Pager Email: [email or web address] Evaluation note 07-11-2021 Note Date & Type Note Facility 07-11-2021 Evaluation note Encounter Date Diagnosis Assessment Notes Jul, 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 He also has mild carpal tunnel syndrome. Evidence of a remote C5 difficulty which is not relative to this issue. His arm pain is completely gone. He has no real neck pain he has normal strength where he was week before. I suspect he had a cervical radiculopathy that is now resolved. His carpal tunnel is not symptomatic. We talked about these issues in detail he understands and agrees that he could return if new problem arises. [facility] Other History general Narrative - Reported Note Date & Type Note Facility History general Narrative - Reported Type Medical History diabetes mallitus Medical History emphysema Medical History heart disease Surgical History tonsillectomy Surgical History colonoscopy Surgical History Heart Surgery Surgical History CABG Hospitalization History See Above [facility] Other Summary Purpose Family History No Family History Records FoundNo Family History Records FoundNo Family History Records FoundNo Family History Records FoundNo Family History Records Found Advance Directives No Advanced Directives Records FoundNo Advanced Directives Records FoundNo Advanced Directives Records FoundNo Advanced Directives Records FoundNo Advanced Directives Records Found Reason for Referral Reason Evaluate and Treat Diagnosis 1 Disorder of interver tebral disc at C5-C6 level with radiculopathy (M50.122) Referral Organization [facility] urosurgery Referring Provider First Name Xiang Referring Provider Last Name Kingsley Referring Provider Specialty Neurologica l Surgery [facility] Address [address] [place], [place],[address] Referred Provider Specialty Physical [employer] Referral Priority Routine Additional Source Comments (unrecognized sect ion and content) No Status Records FoundNo Status Records FoundNo Status Records FoundNo Status Records FoundNo Status Records Found INFORMATION SOURCE (unrecogn ized section and content) DATE CREATED AUTHOR 01/27/2018 [facility] DATE CREATED AUTHOR AUTHOR'S ORGANIZ ATION 03/13/2022 [facility] DATE CREATED AUTHOR AUTHOR'S ORGANIZ ATION 12/30/2023 [facility] DATE CREATED AUTHOR AUTHOR'S ORGANIZ ATION 02/03/2024 [facility] DATE CREATED AUTHOR AUTHOR'S ORGANIZ ATION 09/26/2024 [facility] REASON FOR VISIT (unrecogniz ed section and content) EMG Results FOR RECORDS PERTAINING TO PATIENTS WHO ARE OR HAVE BEEN ENROLLED IN A CHEMICAL DEPENDENCY/SUBSTANCEABUSE PROGRAM, SOME INFORMATION MAY BE OMITTED. This clinical summary was aggregated from multiple sources. Caution should be exercised in using it in the provision of clinical care. This summary normalizes information from multiple sources, and as a consequence, information in this document may materially change the coding, format and clinical context of patient data. In addition, data may be omitted in some cases. CLINICAL DECISIONS SHOULD BE BASED ON THE PRIMARY CLINICAL RECORDS. [facility], [facility]. provides no warranty or guarantee of the accuracy or completeness of information in this document.
--- NOTE | 2024-09-29 14:55 | MR_ITS ---
The [address] [address] Patient Name: LIZBET JAIME MRN: [id number] date: 1955 Sex: M Assigned Patient Location: LAB Current Patient Location: LAB Accession/Order Number: [id number] Exam Date: 09/29/2024 17:52 Report Date: 09/29/2024 18:02 At the request of: NON-STAFF PHYSICIAN Procedure: MR head/brain wo/w con MR head/brain wo/w con 09/29/2024 4:06 PM SIGN AND SYMPTOMS: ^Mid Cognitive Impairment Of Uncertain Etiology PROTOCOL: Multiplanar multisequence MR images of the brain were obtained with and without IV contrast CONTRAST: 20 mL of intravenous Dotarem COMPARISON: 03/03/2022 FINDINGS: Extra axial spaces: There is diffuse age-related cortical atrophy. Hemorrhage: None. Ventricular system: Within normal limits. Basal cisterns: Within normal limits and not effaced. Cerebral parenchyma: There is T2 and T2 FLAIR hyperintense signal consistent with chronic microvascular ischemic change. 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 No abnormal postcontrast enhancement. Midline shift: None.. Cerebellum: Within normal limits. Brainstem: Within normal limits. OTHER: Calvarium: Normal marrow signal. Vascular system: Satisfactory flow voids within the anterior and posterior circulation. Visualized Paranasal sinuses: Within normal limits. Visualized Orbits: Within normal limits. Visualized upper cervical spine: Within normal limits. Sella and skull base: Within normal limits. MR/MR head/brain wo/w con IMPRESSION: No acute intracranial pathology. No abnormal postcontrast enhancement. Chronic age-related neurodegenerative changes are noted as above. These have progressed since the prior exam. Impression dictated by: Austin Lloyd M.D.09/29/2024 6:02 PM Dictation Location: [place] [address] Electronically authenticated by: [id number] Y Date: 09/29/2024 18:02
[2024-09-29 15:04] LABS: Estimated GFR (African America >60 (>=60 mL/min/1.73m^2); Estimated GFR (Non-African Ame >60 (>=60 mL/min/1.73m^2)
== END 2024-09-29 14:28 | disposition home or self-care (01) ==
PROVIDERS: PCP Family Medicine
DX: G31.84 Mild cognitive impairment of uncertain or unknown etiology (principal)
CPT/HCPCS: 36415; 70553; 82565; 84520; A9575

== ENCOUNTER 2025-05-11 10:09 | Outpatient (OUT) | payer MEDICARE, OTHER, SELFPAY ==
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
[2025-05-11 11:09] LABS: Alanine Aminotransferase 59 U/L (16-63); Albumin Globulin Ratio 0.9; Albumin Level 3.8 g/dL (3.4-5.0); Alkaline Phosphatase 92 U/L (46-116); Anion Gap 12.6; Aspartate Amino Transferase 37 U/L (15-37); Blood Urea Nitrogen 13.0 mg/dL (7.0-18.0); Calcium 8.9 mg/dL (8.5-10.1); Carbon Dioxide 29.6 mmol/L (21.0-32.0); Chloride 107 mmol/L (98-107); Cholesterol 122 mg/dL (<=200); Estimated GFR (African America >60 (>=60 mL/min/1.73m^2); Estimated GFR (Non-African Ame >60 (>=60 mL/min/1.73m^2); Globulin 4.0 g/dL; Glucose 97 mg/dL (74-106); HDL Cholesterol 48 mg/dL (40-60); Potassium 4.2 mmol/L (3.5-5.1); Sodium 145 mmol/L (136-145); Total Protein 7.8 g/dL (6.4-8.2); Triglycerides 122 mg/dL (<=150); VLDL CHOLESTEROL 24.4 mg/dL
== END 2025-05-11 10:10 | disposition home or self-care (01) ==
LOC: LAB 10:11
PROVIDERS: PCP Family Medicine; Visit Provider Family Medicine
DX: E78.5 Hyperlipidemia, unspecified (principal)
CPT/HCPCS: 36415; 80053; 80061; 82043; 82570; 83036